=== PATIENT | male | born 1990 ===

== ENCOUNTER 2023-03-22 17:59 | Emergency (ER) | payer OTHER ==
[~2023-03-22] VITALS: Ht 185.4 cm; Wt 77.7 kg
[2023-03-22 18:00] VITALS: BP 116/78; PULSE 92; TEMP 97.7; O2SAT 99
[2023-03-22] MEDS ORDERED: ALBU8HFA INH (19:07)
[2023-03-22] MEDS ORDERED: PRED20TA PO (19:08)
[2023-03-22] MEDS ORDERED: AZIT250T83 PO (19:09)
[2023-03-22 19:21] VITALS: RESP 17
== END 2023-03-22 19:24 | disposition home or self-care (01) ==
LOC: ER 18:00
DX: R05.9 Cough, unspecified (principal); Z20.822 Contact with and (suspected) exposure to COVID-19; R06.2 Wheezing
CPT/HCPCS: 36415; 71045; 87502; 87503; 87811; 99284